=== PATIENT | female | born 1960 | race Two or more races ===

== ENCOUNTER 2016-06-07 19:40 | Emergency (ER) | payer OTHER ==
[~2016-06-07] VITALS: Ht 154.9 cm; Wt 74.8 kg
[2016-06-07] MEDS ORDERED: KETOROLAC TROMETH 60MG/2ML VIAL IM ONE (22:30)
[2016-06-08 00:28] LABS: Urine Bilirubin Negative (Negative); Urine Blood Negative /uL (Negative); Urine Ca Oxalate Crystal FEW (None Seen); Urine Color Yellow (Yellow); Urine Glucose Normal (Normal); Urine Ketone Negative (Negative); Urine Mucus FEW (None Seen); Urine Nitrite Negative (Negative); Urine RBC 3 /hpf (0 - 4); Urine Squamous Epithelial Cell FEW /hpf (<5); Urine Urobilinogen Normal (Negative)
[2016-06-08 00:30] VITALS: BP 132/78
== END 2016-06-08 00:42 | disposition home or self-care (01) ==
LOC: ER 19:47
DX: S39.012A Strain of muscle, fascia and tendon of lower back, initial encounter (principal); S80.02XA Contusion of left knee, initial encounter; Z88.6 Allergy status to analgesic agent; Z88.5 Allergy status to narcotic agent; Z88.1 Allergy status to other antibiotic agents; N39.0 Urinary tract infection, site not specified; W01.0XXA Fall on same level from slipping, tripping and stumbling without subsequent striking against object, initial encounter; Y93.89 Activity, other specified; Y99.8 Other external cause status; Y92.89 Other specified places as the place of occurrence of the external cause
CPT/HCPCS: 72100; 73560; 81001; 81025; 96372; 99285; J1885

== ENCOUNTER 2019-03-27 19:36 | Emergency (ER) | payer OTHER ==
[~2019-03-27] VITALS: Ht 154.9 cm; Wt 77.1 kg
[2019-03-27] MEDS ORDERED: TETRACAINE HCL 0.5% OPTH(EYE) SOLN 4ML EACHEYE ONE (20:15)
[2019-03-27] MEDS ORDERED: FLUORESCEIN SOD 1 MG TEST STRIP EACHEYE ONE (20:15)
[2019-03-27 20:32] VITALS: BP 157/94
[2019-03-27] MEDS ORDERED: KETOROLAC TROMETH 60MG/2ML VIAL IM ONE (20:45)
[2019-03-27] MEDS ORDERED: cefTRIAXone SOD 1,000 MG VL IM ONE (20:45)
[2019-03-27 21:46] LABS: Hepatitis B Surface Antibody Positive
[2019-03-27 23:20] LABS: Hepatitis B Surface Antigen Negative (Negative)
== END 2019-03-27 21:18 | disposition home or self-care (01) ==
LOC: ER 19:36
DX: T15.01XA Foreign body in cornea, right eye, initial encounter (principal); Z88.5 Allergy status to narcotic agent; Z88.2 Allergy status to sulfonamides; Y04.2XXA Assault by strike against or bumped into by another person, initial encounter; Y93.89 Activity, other specified; Y92.89 Other specified places as the place of occurrence of the external cause; Y99.0 Civilian activity done for income or pay
CPT/HCPCS: 36415; 65222; 86703; 86706; 86803; 87340; 96372; 99284; J0696; J1885; 65220

== ENCOUNTER 2019-10-23 12:33 | Emergency (ER) | payer OTHER ==
[~2019-10-23] VITALS: Ht 154.9 cm; Wt 81.6 kg
[2019-10-23 12:57] VITALS: BP 122/84
[2019-10-23 13:16] LABS: Urine Bacteria NONE SEEN /hpf (None Seen); Urine Blood Negative /uL (Negative); Urine Mucus FEW (None Seen); Urine WBC 21 /hpf (0 - 5)
[2019-10-23 13:48] LABS: Basophils # (auto) 0.1 10 ^3/uL (0-0.2); Basophils % (auto) 1.4 % (0.0-2.0); Eosinophils # (auto) 0.1 10 ^3/uL (0-0.8); Eosinophils % (auto) 1.1 % (0.0-7.0); Hematocrit 43.9 % (36.0-46.0); Hemoglobin 14.6 g/dL (12.2-16.2); Lymphocytes # (auto) 2.2 10 ^3/uL (0.4-5.4); Lymphocytes % (auto) 27.3 % (10.0-50.0); Mean Corpuscular Hemoglobin 29.9 pg (28.0-32.0); Mean Corpuscular Hgb Conc. 33.3 g/dL (32.0-36.0); Mean Corpuscular Volume 89.9 fL (80.0-100.0); Monocytes # (auto) 0.4 10 ^3/uL (0-1.3); Monocytes % (auto) 5.3 % (0.0-12.0); Neutrophils # (auto) 5.3 10 ^3/uL (1.6-8.6); Neutrophils % (auto) 64.9 % (37.0-80.0); Nucleated Red Blood Cells % 0.1 %; Platelet Count (auto) 340 10^3/uL (140-450); Red Blood Cells 4.88 10^6/uL (4.0-5.20); Red Cell Distribution Width 13.8 % (11.8-14.3); White Blood Cell 8.2 10^3/uL (4.4-10.8)
[2019-10-23 14:06] LABS: Albumin 3.8 g/dL (3.4-5.0); Calcium 9.7 mg/dL (8.5-10.1); Potassium 3.9 mmol/L (3.5-5.1)
[2019-10-23 14:09] LABS: BUN/Creatinine Ratio 17.1; Bilirubin, Total 0.4 mg/dL (0.2-1.0); Total Protein 7.8 g/dL (6.4-8.2)
== END 2019-10-23 14:59 | disposition home or self-care (01) ==
LOC: ER 12:33
DX: N39.0 Urinary tract infection, site not specified (principal); K21.9 Gastro-esophageal reflux disease without esophagitis; K59.00 Constipation, unspecified; K76.0 Fatty (change of) liver, not elsewhere classified; Z88.6 Allergy status to analgesic agent
CPT/HCPCS: 36415; 76705; 80053; 81001; 83690; 85025; 93005

== ENCOUNTER 2020-02-27 11:37 | Emergency (ER) | payer OTHER ==
[~2020-02-27] VITALS: Ht 154.9 cm; Wt 81.6 kg
[2020-02-27 12:07] VITALS: BP 139/79
[2020-02-27] MEDS ORDERED: KETOROLAC TROMETH 60MG/2ML VIAL IM ONE (13:30)
[2020-02-27] MEDS ORDERED: ONDANSETRON ODT 4 MG TAB PO ONE (13:30)
== END 2020-02-27 14:02 | disposition home or self-care (01) ==
LOC: ER 11:37
DX: F41.1 Generalized anxiety disorder (principal); G43.909 Migraine, unspecified, not intractable, without status migrainosus; Z88.2 Allergy status to sulfonamides; Z88.6 Allergy status to analgesic agent
CPT/HCPCS: 93005; 96372; 99283; J1885; Q0162

== ENCOUNTER 2020-07-29 17:00 | Emergency (ER) | payer OTHER ==
[~2020-07-29] VITALS: Ht 162.6 cm; Wt 72.6 kg
[2020-07-29] MEDS ORDERED: cloNIDine HCL 0.1 MG TAB PO ONE (20:15)
[2020-07-29 21:20] VITALS: BP 153/81
== END 2020-07-29 22:00 | disposition home or self-care (01) ==
LOC: ER 17:00
DX: R03.0 Elevated blood-pressure reading, without diagnosis of hypertension (principal); Z56.3 Stressful work schedule

== ENCOUNTER 2020-07-30 08:47 | Emergency (ER) | payer OTHER ==
[~2020-07-30] VITALS: Ht 154.9 cm; Wt 77.1 kg
[2020-07-30 08:52] VITALS: BP 135/94
== END 2020-07-30 10:35 | disposition home or self-care (01) ==
LOC: ER 08:47
DX: F41.1 Generalized anxiety disorder (principal); G43.909 Migraine, unspecified, not intractable, without status migrainosus; Z88.6 Allergy status to analgesic agent; Z88.8 Allergy status to other drugs, medicaments and biological substances

== ENCOUNTER 2020-11-26 17:58 | Emergency (ER) | payer OTHER ==
[~2020-11-26] VITALS: Ht 154.9 cm; Wt 79.4 kg
[2020-11-26 22:34] VITALS: BP 135/76
== END 2020-11-26 23:12 | disposition home or self-care (01) ==
LOC: ER 17:58
DX: M79.675 Pain in left toe(s) (principal); F41.9 Anxiety disorder, unspecified; Z88.5 Allergy status to narcotic agent; Z88.2 Allergy status to sulfonamides